=== PATIENT | female | born 1970 | race Caucasian/White ===

== ENCOUNTER 2019-10-30 11:48 | Day surgery (SDC) | payer BC ==
[~2019-10-30 11:48] MED LIST: Buffered Lidocaine 1% SYRIN* 1 ML/SYRINGE INTRADERM ONE; Lactated Ringers 1000 ML Bag* 1,000 ML IV SCH
[2019-10-30] MEDS ORDERED: ceFAZolin 2 GM in NS PREMIX(*) 2 GM/100 ML BAG IVPB ONE (13:17)
[2019-10-30] MEDS ORDERED: Buffered Lidocaine 1% SYRIN* 1 ML/SYRINGE INTRADERM ONE (13:17)
[2019-10-30] MEDS ORDERED: Midazolam* 1 MG/ML 2 ML VIAL (2 MG) ONE (13:57)
[2019-10-30] MEDS ORDERED: fentaNYL* 50 MCG/ML 2 ML VIAL (100 MCG VIAL) ONE (13:57)
[2019-10-30] MEDS ORDERED: Lidocaine 2% PF * 5 ML VIAL ONE (14:26)
[2019-10-30] MEDS ORDERED: Bupivacaine 0.5% SDV PF* 30ML VIAL ONE (14:26)
[2019-10-30] MEDS ORDERED: Ropivacaine 0.2% * 2 MG/ML VIAL ONE (14:46)
[2019-10-30] MEDS ORDERED: Ondansetron INJ* 2 MG/ML VIAL ONE (15:08)
[2019-10-30] MEDS ORDERED: Propofol* 10 MG/ML 20 ML BTL ONE (15:08)
[2019-10-30] MEDS ORDERED: Dexamethasone IV* 4 MG/ML 1 ML (4 MG) ONE (15:08)
[2019-10-30] MEDS ORDERED: DiMENhydriNATE IV* 50 MG/ML VIAL IV PUSH PRN (16:42)
[2019-10-30] MEDS ORDERED: oxyCODONE/Acetamin 5/325 MG* TAB PO PRN (16:42)
[2019-10-30] MEDS ORDERED: DiMENhydriNATE IV* 50 MG/ML VIAL ONE (16:42)
[2019-10-30] MEDS ORDERED: fentaNYL* 50 MCG/ML 2 ML VIAL (100 MCG VIAL) IV PRN (16:42)
[2019-10-30] MEDS ORDERED: HYDROcodone/ACETAMIN 5-325 MG* 1 TAB PO PRN (16:42)
[2019-10-30] MEDS ORDERED: Naloxone* 0.4 MG/ML 1 ML VIAL IV PRN (16:42)
[2019-10-30] MEDS ORDERED: oxyCODONE TAB* 5 MG TAB PO PRN (16:42)
[2019-10-30] MEDS ORDERED: Acetaminophen TAB* 325 MG PO PRN (16:42)
[2019-10-30 17:56] VITALS: BP 116/82
--- NOTE | 2019-11-04 20:04 | OP ---
DATE OF OPERATION: 10/30/19 [facility] DATE OF : 66 SURGEON: Raheem Davis MD ANESTHESIOLOGIST: Dr. Marshall. ANESTHESIA: General, interscalene block. [employer] MECHANIC: JOELLE Squires. Loss Prevention Auditor was needed for the entirety of the case to help with positioning, retraction, and was utilized throughout all portions of the case. PRE-OP DIAGNOSIS: Right shoulder partial thickness tear of the rotator cuff with SLAP tear. POST-OP DIAGNOSIS: Right shoulder partial thickness tear of the rotator cuff with SLAP tear. OPERATIVE PROCEDURE: Right shoulder arthroscopy with: 1. Extensive glenohumeral debridement including biceps tenotomy. 2. Subacromial decompression with acromioplasty. 3. Rotator cuff repair using Regeneten patch. COMPLICATIONS: None. ESTIMATED BLOOD LOSS: Minimal. IMPLANTS: Regeneten patch size medium x1. INDICATIONS: Asha Gregg is a 49-year-old female with persistent shoulder pain refractory to conservative management. She has failed physical therapy, antiinflammatories, ice, heat and injections. She has elected to proceed with surgical treatment. Risks including but not limited to bleeding; infection; damage to nerves, vessels, surrounding structures; wound not healing; persistent pain; need for surgery; scarring; stiffness; incomplete relief of symptoms and risk of anesthesia. DESCRIPTION OF PROCEDURE: The patient was greeted in the preoperative area by the attending surgeon. Correct extremity was marked and consent was confirmed. The patient was brought back to the operating suite. The patient underwent interscalene nerve block by anesthesiologist after she was brought back to the operating suite where she was placed in supine position on the operating table, then underwent general anesthesia and endotracheal intubation, after which she was placed in the left lateral decubitus position with an axillary roll. All bony prominences were padded. She was secured with a peg board. The right arm was draped was draped unsterilely with 10 pounds of traction. Right shoulder was then prepped and draped in the usual sterile fashion beginning with chlorhexidine soap, scrub, and alcohol wipe and a final prep of ChloraPrep. After appropriate surgical pause indicating side, site, procedure, and administration of antibiotics, a standard postero-lateral portal was made sharply with 11-blade. Scope was introduced into the joint. Joint was examined. There was abundant synovitis that is present. There was evidence of a SLAP type II tear. The anterior portal was made in outside fashion. Shaver was used to debride back the anterior, posterior and superior labrum and then do a biceps tenotomy. The undersurface of cuff had some mild partial thickness tearing. The subscap was intact. Inferior recess was intact. Once the debridement was completed, attention was directed to the subacromial space. The scope was positioned in the subacromial space, lateral port was made in an outside-in fashion. The shaver was used to debride back the abundant bursa that was present. The electrocautery device was used to skeletonize the undersurface of the acromion, which revealed anterior lateral spurs, this was debrided back using 4-0 oval arsenio. After all loose debris and tissue was removed, attention was directed to the cuff. The cuff was found out to have some partial thickness tearing on the bursal side. There was no evidence of full thickness tear. The decision was made to use Regeneten patch. Size medium Regeneten patch was then brought to the field and then placed under arthroscopic and direct visualization. This was then secured through separate stab incision. A cannula was placed. The patch was secured medially with tendon tomas, then laterally with PEEK tomas. Final images were obtained and the patches found to be well seated. The wounds were then copiously irrigated with sterile saline. Portals were closed with 3-0 nylon. Sterile dressings were applied. A Cryo/Cuff and a regular sling was applied. She was awoken from anesthesia and transferred to PACU in stable condition. POSTOPERATIVE PLAN: She will be nonweightbearing. She will start range of motion on postop day #1. She will be discharged on pain medication. DVT prophylaxis was considered but deferred due to no previous personal or family history. I will see the patient back in 10 to 14 days. [id number]/[facility] #: [id number] [place]
== END 2019-10-30 18:00 | disposition home or self-care (01) ==
LOC: OR 11:48
PROVIDERS: ATTEND Orthopaedic Surgery
DX: M75.111 Incomplete rotator cuff tear or rupture of right shoulder, not specified as traumatic (principal); M24.811 Other specific joint derangements of right shoulder, not elsewhere classified; G89.18 Other acute postprocedural pain; G40.89 Other seizures; J45.909 Unspecified asthma, uncomplicated; I73.00 Raynaud's syndrome without gangrene; M19.90 Unspecified osteoarthritis, unspecified site; F43.10 Post-traumatic stress disorder, unspecified; E11.9 Type 2 diabetes mellitus without complications; Z88.0 Allergy status to penicillin; Z88.8 Allergy status to other drugs, medicaments and biological substances
CPT/HCPCS: C1713; J0690; J1100; J1240; J2250; J2405; J2704; J2795; J3010; J3490